=== PATIENT | female | born 1955 | race Caucasian/White ===

== ENCOUNTER 2020-01-17 11:31 | Emergency (ER) | payer BC ==
[2020-01-17] MEDS ORDERED: Meclizine 25 MG Tab PO ONE (12:25)
--- NOTE | 2020-01-17 12:32 | EDM.PDOC ---
ED HPI GENERAL MEDICAL PROBLEM - General Chief Complaint: Neurological Problem Stated Complaint: DIZZY, NUMB HEAD/FACE Time Seen by Provider: 01/17/20 12:16 Source of Information: Reports: Patient, RN Notes Reviewed History Limitations: Reports: No Limitations - History of Present Illness INITIAL COMMENTS - FREE TEXT/NARRATIVE: 64-year-old female presents emergency department a complaint of dizziness, she states it started yesterday morning had awoke with a headache however this did resolve with Tylenol she describes the dizziness as feeling like she is going to fall over or she leans to 1 side when she walks. She has no difficulty with ambulation as long as she moves slow, she has had one episode of nausea which now has resolved no other complaints - Related Data Allergies Allergy/AdvReac Type Severity Reaction Status Date / Time No Known Allergies Allergy Verified 01/17/20 11:45 Home Meds: Home Meds Famotidine 40 mg PO DAILY 01/17/20 [History] Meclizine [Antivert] 25 mg PO TID PRN #30 tab 01/17/20 [Rx] Past Medical History HEENT History: Reports: Impaired Vision Cardiovascular History: Reports: High Cholesterol Gastrointestinal History: Reports: Chronic Constipation, GERD Neurological History: Reports: None Endocrine/Metabolic History: Reports: Obesity/BMI 30+ - Infectious Disease History Infectious Disease History: Reports: Chicken Pox - Past Surgical History Head Surgeries/Procedures: Reports: None HEENT Surgical History: Reports: None Cardiovascular Surgical History: Reports: None Female Surgical History: Reports: None Endocrine Surgical History: Reports: None Neurological Surgical History: Reports: Lumbar Spine Dermatological Surgical History: Reports: None Social & Family History - Tobacco Use Smoking Status *Q: Never Smoker Second Hand Smoke Exposure: No - Caffeine Use Caffeine Use: Reports: Coffee - Recreational Drug Use Recreational Drug Use: No ED ROS GENERAL - Review of Systems Review Of Systems: See Below Constitutional: Reports: No Symptoms HEENT: Reports: Vertigo Respiratory: Reports: No Symptoms Cardiovascular: Reports: No Symptoms GI/Abdominal: Reports: Nausea Neurological: Reports: Dizziness, Headache ED EXAM, NEURO - Physical Exam Exam: See Below Text/Narrative:: Head impulse test: Negative loss of fixation with corrective saccades when head turned to the bilateral Nystagmus: unidirectional, horizontal 1-beating nystagmus that does fatigue Skew deviation: absent Exam Limited By: No Limitations General Appearance: Alert, WD/WN, No Apparent Distress Eye Exam: Bilateral Eye: EOMI, Normal Inspection, PERRL Respiratory/Chest: No Respiratory Distress, Lungs Clear, Normal Breath Sounds, No Accessory Muscle Use, Chest Non-Tender Cardiovascular: Regular Rate, Rhythm, No Murmur Neurological: Alert, Normal Mood/Affect, CN II-XII Intact, Normal Gait, Oriented x 3 Course - Vital Signs Last Recorded V/S: Last Vital Signs Temp 98.3 F 01/17/20 11:51 Pulse 78 01/17/20 11:51 Resp 16 01/17/20 11:51 BP 138/97 H 01/17/20 11:51 Pulse Ox 97 01/17/20 11:51 - Orders/Labs/Meds Meds: Medications Discontinued Medications Generic Name Dose Route Start Last Admin Trade Name Arlene PRN Reason Stop Dose Admin Meclizine HCl 25 mg 01/17/20 12:25 01/17/20 12:30 Antivert PO 01/17/20 12:26 25 mg ONETIME ONE Administration Departure - Departure Time of Disposition: 13:25 Disposition: Home, Self-Care 01 Condition: Fair Clinical Impression: Dizziness - Discharge Information Instructions: Dizziness, [id number] Referrals: PCP,None [Primary Care Provider] - Forms: ED Department Discharge Additional Instructions: Continue to use the meclizine as needed for dizzy symptoms, please followup with your primary care provider in 3-5 days if not better, please call return to the emergency department with worsening of symptoms. Your medications have been faxed to [facility] Sepsis Event Note - Evaluation Sepsis Screening Result: No Definite Risk - Focused Exam Vital Signs: Vital Signs Temp Pulse Resp BP Pulse Ox 01/17/20 11:51 98.3 F 78 16 138/97 H 97 01/17/20 11:45 98.3 F 78 16 138/97 H 97 Date Exam was Performed: 01/17/20 Time Exam was Performed: 13:24 - Assessment/Plan Plan: Assessment Acuity = acute Site and laterality = dizziness Etiology = unknown probable peripheral Manifestations = none Location of injury = Home Lab values = none Plan Good improvement with meclizine provided prescription written for meclizine 1 tab p.o. 3 times daily as needed 25 mg total #30 follow-up primary care 3 to 5 days if not better medications faxed to [facility] This note was dictated using [employer] voice recognition software please call with any questions on syntax or grammar.
== END 2020-01-17 13:33 | disposition home or self-care (01) ==
LOC: JP.ED 11:31
DX: R42 Dizziness and giddiness (principal); K21.9 Gastro-esophageal reflux disease without esophagitis; Z79.899 Other long term (current) drug therapy; E66.9 Obesity, unspecified; Z68.32 Body mass index [BMI] 32.0-32.9, adult
CPT/HCPCS: 99283; A9270

== ENCOUNTER 2021-04-23 13:40 | Emergency (ER) | payer MEDICARE, BC ==
--- NOTE | 2021-04-23 14:26 | EDM.PDOC ---
ED HPI GENERAL MEDICAL PROBLEM - General Chief Complaint: Cardiovascular Problem Stated Complaint: HIGH BP Time Seen by Provider: 04/23/21 14:30 Source of Information: Reports: Patient, Old Records, RN History Limitations: Reports: No Limitations - History of Present Illness INITIAL COMMENTS - FREE TEXT/NARRATIVE: 65 yo female here with elevated BP at home earlier. She took an extra 2.5 mg of her lisinopril and now her BP is better and she feels back to normal. She called the clinic asking for an appt today and as there was none was told to go to the ER. Has recently had a very extensive work up for heart dz and renal dz and none was identified. Was mildly light-headed before arrival. Onset: Today, Gradual Onset Date: 04/23/21 Duration: Minutes: Location: Reports: Head Quality: Reports: Other (light-headed) Severity: Mild Improves with: Reports: Medication (lisinopril and time) Worsens with: Reports: Other (unsure, didn't think she was anxious) Context: Reports: Other (See HPI) Associated Symptoms: Reports: Other (light-headed, mild). Denies: Chest Pain, Cough, Diaphoresis, Nausea/Vomiting, Shortness of Breath Treatments PAIL TESTER: Reports: Other (see below) (See HPI) - Related Data Allergies Allergy/AdvReac Type Severity Reaction Status Date / Time No Known Allergies Allergy Verified 01/17/20 11:45 Home Meds: Home Meds Famotidine 40 mg PO DAILY 01/17/20 [History] lisinopriL [Lisinopril] 2.5 mg PO DAILY 02/16/21 [History] lisinopriL [Lisinopril] 10 mg PO DAILY #30 tablet 04/23/21 [Rx] Past Medical History HEENT History: Reports: Impaired Vision Cardiovascular History: Reports: Other (See Below) Other Cardiovascular History: hyper tension Gastrointestinal History: Reports: Chronic Constipation, GERD Genitourinary History: Reports: None Neurological History: Reports: None Endocrine/Metabolic History: Reports: Obesity/BMI 30+ - Infectious Disease History Infectious Disease History: Reports: Chicken Pox - Past Surgical History Head Surgeries/Procedures: Reports: None HEENT Surgical History: Reports: None Cardiovascular Surgical History: Reports: None Female Surgical History: Reports: None Endocrine Surgical History: Reports: None Neurological Surgical History: Reports: Lumbar Spine Dermatological Surgical History: Reports: None Social & Family History - Tobacco Use Tobacco Use Status *Q: Never Tobacco User - Caffeine Use Caffeine Use: Reports: Coffee - Recreational Drug Use Recreational Drug Use: No ED ROS GENERAL - Review of Systems Review Of Systems: See Below Constitutional: Reports: No Symptoms HEENT: Reports: No Symptoms Respiratory: Reports: No Symptoms Cardiovascular: Reports: Lightheadedness. Denies: Chest Pain Endocrine: Reports: No Symptoms GI/Abdominal: Reports: No Symptoms Skin: Reports: No Symptoms Neurological: Reports: No Symptoms Psychiatric: Denies: Anxiety ED EXAM, GENERAL - Physical Exam Exam: See Below Exam Limited By: No Limitations General Appearance: Alert, WD/WN, No Apparent Distress Eye Exam: Bilateral Eye: Normal Inspection Ears: Normal External Exam, Normal Canal, Hearing Grossly Normal, Normal TMs Ear Exam: Bilateral Ear: Auricle Normal, Canal Normal, TM normal Nose: Normal Inspection, No Blood Throat/Mouth: Normal Inspection, Normal Lips, Normal Oropharynx, Normal Voice, No Airway Compromise Head: Atraumatic, Normocephalic Neck: Normal Inspection Respiratory/Chest: No Respiratory Distress, Lungs Clear, Normal Breath Sounds, No Accessory Muscle Use Cardiovascular: Regular Rate, Rhythm, No Edema GI/Abdominal: Normal Bowel Sounds, Soft, Non-Tender, No Distention Back Exam: Normal Inspection. No: CVA Tenderness (R), CVA Tenderness (L) Extremities: Normal Inspection, Normal Range of Motion, Non-Tender, No Pedal Edema Neurological: Alert, Oriented, CN II-XII Intact, Normal Cognition, No Motor/Sensory Deficits Psychiatric: Normal Affect, Normal Mood Skin Exam: Warm, Dry, Intact, Normal Color, No Rash Course - Vital Signs Last Recorded V/S: Last Vital Signs Temp 36.6 C 04/23/21 14:24 Pulse 85 04/23/21 14:25 Resp 18 04/23/21 14:10 BP 142/86 H 04/23/21 14:25 Pulse Ox 96 04/23/21 14:10 Departure - Departure Time of Disposition: 14:53 Disposition: Home, Self-Care 01 Condition: Good Clinical Impression: HTN, goal below 130/80 Prescriptions: lisinopriL [Lisinopril] 10 mg PO DAILY #30 tablet Referrals: Marleny Simpson DO [Primary Care Provider] - Forms: ED Department Discharge Additional Instructions: Increase lisinopril to 10 mg daily. Avoid salt or salty foods. Recheck with Dr. Simpson in the next week to ten days. Return as needed. Sepsis Event Note (ED) - Evaluation Sepsis Screening Result: No Definite Risk - Focused Exam Vital Signs: Vital Signs Temp Pulse Resp BP Pulse Ox 04/23/21 14:25 85 142/86 H 04/23/21 14:24 36.6 C 85 04/23/21 14:10 36.6 C 83 18 167/84 H 96
== END 2021-04-23 15:10 | disposition home or self-care (01) ==
LOC: JP.ED 13:40
DX: I10 Essential (primary) hypertension (principal); K21.9 Gastro-esophageal reflux disease without esophagitis; E66.9 Obesity, unspecified; Z79.899 Other long term (current) drug therapy; Z68.33 Body mass index [BMI] 33.0-33.9, adult
CPT/HCPCS: 99283